=== PATIENT | female | born 1995 | race Caucasian/White ===

== ENCOUNTER 2021-04-05 16:54 | Inpatient (IN) | payer SELFPAY ==
[2021-04-05] MEDS ORDERED: Ondansetron PF 4 MG/2 ML Vial ONE (17:52)
[2021-04-05 17:53] LABS: Bilirubin Neg (Negative); Blood, Urine 150 (Negative); Clarity Clear (Clear); Glucose, Urine (Dipstick) Normal (Negative); Ketone, Urine Negative (Negative); Leukocyte Negative (Negative); Nitrite Negative (Negative); Protein, Urine (Dipstick) 100 mg/dl (Neg-Trace); Specific Gravity, Urine 1.005 (1.002-1.036); Urobilinogen Normal mg/dL (Less than 2)
[2021-04-05 17:58] LABS: Mean Corpuscular HGB CONC 33.4 g/dL (32.0-36.0); Mean Corpuscular Hemoglobin 29.1 pg (27.0-33.0); Mean Corpuscular Volume 87.1 fl (81.6-98.3); Mean Platelet Volume 9.7 fl (7.4-10.4); Platelet Count 270 10x3/uL (150-450); RBC Distribution Width 13.2 % (11.5-14.5); Red Blood Cell (RBC) Count 4.12 10x6/uL (3.90-5.03); White Blood Cell (WBC) Count 46.1 10x3/uL (3.5-10.5)
[2021-04-05 18:08] LABS: ALT (SGPT) 16 U/L (8-55); AST (SGOT) 20 U/L (5-34); Albumin 3.1 g/dL (3.5-5.0); Alkaline Phosphatase 203 U/L (40-110); Anion Gap 16 mmol/L (10-20); BUN (Urea Nitrogen) 19 mg/dL (7.0-18.7); Bilirubin, Total 0.3 mg/dL (0.2-1.2); Calc. Creatinine Clearance 0 mL/min (70-130); Calcium 9.1 mg/dL (7.8-10.44); Carbon Dioxide 22 mmol/L (22-29); Chloride 100 mmol/L (98-107); Globulin 3.6 g/dL (2.4-3.5); Glucose 131 mg/dL (70-105); Potassium 4.1 mmol/L (3.5-5.1); Protein, Total 6.7 g/dL (6.0-8.3); Sodium 134 mmol/L (136-145)
[2021-04-05 18:14] LABS: Pregnancy Test - Urine (BHCG) Negative (Negative); Pregu Control Background? CLEAR/WHITE (CLR/WHITE); Pregu Control Bar Appear? YES (CONTROL BAR); Specific Gravity 1.005 (1.002-1.036)
[2021-04-05 18:17] LABS: RBC/HPF 0-3 HPF (0-3)
[2021-04-05 18:18] LABS: WBC/HPF 0-3 HPF (0-3)
[2021-04-05 18:20] LABS: Bacteria/HPF Rare-Few HPF (None Seen)
[2021-04-05 18:23] LABS: Band 2 % (5-11); Lymphocytes 3 % (21-51); Monocytes 4 % (0-10)
[2021-04-05 18:26] LABS: MDiff Complete? YES
[2021-04-05 18:27] LABS: Neutrophil 91 % (42-75)
[2021-04-05 18:28] LABS: Platelet Morphology Comment Appears Adequate; Reflex for Review?? YES; Toxic Granulation SLIGHT
[2021-04-05 19:48] LABS: SARS-CoV-2 NAA Rapid Test Not Detected (NotDetected)
[2021-04-05] MEDS ORDERED: Morphine 4 MG/ML VIAL ONE (20:04)
[2021-04-05] MEDS ORDERED: Piperacillin/Tazobactam 4.5 GM VIAL ONE (20:04)
[2021-04-05] MEDS ORDERED: cefTRIAXone\\ROCEPHIN 1 GM VIAL ONE (20:32)
[2021-04-05 21:09] LABS: Lactic Acid 1.1 mmol/L (0.5-2.2)
[2021-04-05] MEDS ORDERED: Vancomycin HCl 1 GM in Sodium Chloride 0.9% 250 ML 250 ML IVPB SCH (23:00)
[2021-04-05] MEDS ORDERED: Sodium Chloride 0.9% (PF) 10 ML VIAL FS PRN (23:15)
[2021-04-05 23:27] VITALS: BMI 24.0
[2021-04-06] MEDS: Cefepime 2 GM in Sodium Chloride 0.9% 100 ML IVPB SCH ×3 (00:12→23:56)
[2021-04-06] MEDS ORDERED: Acetaminophen 500 MG TAB ONE (01:54)
[2021-04-06] MEDS ORDERED: Morphine 4 MG/ML VIAL ONE (01:54)
[2021-04-06] MEDS ORDERED: Morphine 4 MG/ML VIAL SLOW IVP SCH (02:15)
[2021-04-06] MEDS ORDERED: Acetaminophen 500 MG TAB PO SCH (02:15)
[2021-04-06] MEDS ORDERED: Lactated Ringer's 500 ML IV SCH (02:15)
[2021-04-06 03:53] LABS: Anion Gap 12 mmol/L (10-20); BUN (Urea Nitrogen) 15 mg/dL (7.0-18.7); Calc. Creatinine Clearance 96 mL/min (70-130); Calcium 7.8 mg/dL (7.8-10.44); Carbon Dioxide 17 mmol/L (22-29); Chloride 109 mmol/L (98-107); Glucose 130 mg/dL (70-105); Potassium 3.8 mmol/L (3.5-5.1); Sodium 134 mmol/L (136-145)
[2021-04-06 04:07] LABS: Hemoglobin 10.3 g/dL (12.0-15.5); Mean Corpuscular HGB CONC 33.6 g/dL (32.0-36.0); Mean Corpuscular Hemoglobin 28.8 pg (27.0-33.0); Mean Corpuscular Volume 85.8 fl (81.6-98.3); Mean Platelet Volume 9.7 fl (7.4-10.4); Platelet Count 223 10x3/uL (150-450); RBC Distribution Width 13.2 % (11.5-14.5); Red Blood Cell (RBC) Count 3.58 10x6/uL (3.90-5.03); White Blood Cell (WBC) Count 30.6 10x3/uL (3.5-10.5)
[2021-04-06 04:36] LABS: Band 22 % (5-11); Lymphocytes 3 % (21-51); Monocytes 2 % (0-10); Reactive Lymphocytes 2 % (0-10)
[2021-04-06 04:37] LABS: Neutrophil 71 % (42-75)
[2021-04-06 04:40] LABS: Dohle Bodies SLIGHT; Platelet Morphology Comment Appears Adequate; Toxic Granulation SLIGHT; Vacuoles SLIGHT
[2021-04-06] MEDS: Lactated Ringer's 1,000 ML IV SCH ×4 (06:42→16:30)
[2021-04-06] MEDS ORDERED: Potassium Chloride 20 MEQ TAB PO SCH (08:00)
[2021-04-06] MEDS: Enoxaparin Sodium 40 MG/0.4 ML SYRINGE SC SCH ×2 (08:45→08:52)
[2021-04-06] MEDS: Pantoprazole 40 MG VIAL IVP SCH (08:46)
[2021-04-06] MEDS: Vancomycin HCl 750 MG in Sodium Chloride 0.9% 250 ML 250 ML IVPB SCH ×2 (11:55→22:36)
[2021-04-06] MEDS: Nicotine 14 MG PATCH TD SCH (11:57)
[2021-04-06] MEDS: Benzonatate 100 MG CAP PO PRN (15:47)
[2021-04-06] MEDS: Guaifenesin DM 100-10/5 ML UDCUP PO PRN (16:30)
[2021-04-06] MEDS ORDERED: SUMAtriptan Succinate 25 MG TAB PO SCH (16:45)
[2021-04-06] MEDS ORDERED: Simethicone Chewable 80 MG TAB PO PRN (17:18)
[2021-04-06] MEDS ORDERED: Morphine 2 MG/ML VIAL SLOW IVP PRN (20:04)
[2021-04-06] MEDS ORDERED: Promethazine HCl 12.5 MG in Sodium Chloride 0.9% 50 ML IVPB PRN (20:05)
[2021-04-06] MEDS ORDERED: Acetaminophen 650 MG/20.3 ML UDCUP PO PRN (20:14)
[2021-04-06] MEDS ORDERED: Aripiprazole 10 MG TAB PO SCH (20:15)
[2021-04-06] MEDS ORDERED: Morphine 4 MG/ML VIAL SLOW IVP PRN (20:30)
[2021-04-07] MEDS: Guaifenesin DM 100-10/5 ML UDCUP PO PRN (02:52)
[2021-04-07] MEDS: Benzonatate 100 MG CAP PO PRN ×3 (02:53→20:26)
[2021-04-07] MEDS: Lactated Ringer's 1,000 ML IV SCH ×2 (02:56→14:38)
[2021-04-07 04:40] LABS: Anion Gap 10 mmol/L (10-20); BUN (Urea Nitrogen) 10 mg/dL (7.0-18.7); Calc. Creatinine Clearance 108 mL/min (70-130); Calcium 8.7 mg/dL (7.8-10.44); Carbon Dioxide 21 mmol/L (22-29); Chloride 111 mmol/L (98-107); Glucose 96 mg/dL (70-105); Potassium 4.4 mmol/L (3.5-5.1); Sodium 138 mmol/L (136-145)
[2021-04-07 04:48] LABS: Hemoglobin 10.9 g/dL (12.0-15.5); Mean Corpuscular HGB CONC 33.7 g/dL (32.0-36.0); Mean Corpuscular Hemoglobin 29.3 pg (27.0-33.0); Mean Corpuscular Volume 86.8 fl (81.6-98.3); Mean Platelet Volume 9.4 fl (7.4-10.4); Platelet Count 224 10x3/uL (150-450); RBC Distribution Width 13.2 % (11.5-14.5); Red Blood Cell (RBC) Count 3.72 10x6/uL (3.90-5.03); White Blood Cell (WBC) Count 28.9 10x3/uL (3.5-10.5)
[2021-04-07 05:02] LABS: Band 10 % (5-11); Eosinophils 2 % (0-10); Lymphocytes 8 % (21-51); Metamyelocyte 1 % (0-0); Monocytes 8 % (0-10); Myelocyte 1 % (0-0); Neutrophil 69 % (42-75)
[2021-04-07 05:04] LABS: MDiff Complete? YES; Manual Diff?? YES
[2021-04-07 05:05] LABS: Dohle Bodies SLIGHT; Platelet Morphology Comment Appears Adequate; Toxic Granulation SLIGHT
[2021-04-07] MEDS: Aripiprazole 10 MG TAB PO SCH (09:49)
[2021-04-07] MEDS: Pantoprazole 40 MG VIAL IVP SCH (09:51)
[2021-04-07] MEDS: Enoxaparin Sodium 40 MG/0.4 ML SYRINGE SC SCH (09:51)
[2021-04-07 10:07] LABS: Vancomycin, Trough 5.8 ug/mL
[2021-04-07] MEDS: Fluticasone Propionate Nasal Spray 16 gm Bottle NASAL SCH (10:29)
[2021-04-07] MEDS: Vancomycin HCl 750 MG in Sodium Chloride 0.9% 250 ML 250 ML IVPB SCH ×2 (10:30→17:11)
[2021-04-07] MEDS: Pseudoephedrine HCl 30 MG TAB PO PRN ×2 (10:31→20:26)
[2021-04-07] MEDS: Cefepime 2 GM in Sodium Chloride 0.9% 100 ML IVPB SCH (14:37)
[2021-04-07] MEDS: Nicotine 14 MG PATCH TD SCH (14:38)
[2021-04-07] MEDS: ALPRAZolam 0.25 MG TAB PO PRN (20:26)
[2021-04-08] MEDS: Cefepime 2 GM in Sodium Chloride 0.9% 100 ML IVPB SCH ×2 (00:17→14:03)
[2021-04-08] MEDS: Vancomycin HCl 750 MG in Sodium Chloride 0.9% 250 ML 250 ML IVPB SCH (02:02)
[2021-04-08 04:48] LABS: Hemoglobin 10.9 g/dL (12.0-15.5); Mean Corpuscular HGB CONC 33.4 g/dL (32.0-36.0); Mean Corpuscular Hemoglobin 27.7 pg (27.0-33.0); Mean Platelet Volume 9.5 fl (7.4-10.4); Platelet Count 256 10x3/uL (150-450); RBC Distribution Width 13.2 % (11.5-14.5); Red Blood Cell (RBC) Count 3.93 10x6/uL (3.90-5.03); White Blood Cell (WBC) Count 19.6 10x3/uL (3.5-10.5)
[2021-04-08 04:57] LABS: Anion Gap 12 mmol/L (10-20); BUN (Urea Nitrogen) 9 mg/dL (7.0-18.7); Calc. Creatinine Clearance 122 mL/min (70-130); Calcium 8.7 mg/dL (7.8-10.44); Carbon Dioxide 20 mmol/L (22-29); Chloride 110 mmol/L (98-107); Glucose 92 mg/dL (70-105); Sodium 138 mmol/L (136-145)
[2021-04-08 05:42] LABS: Band 1 % (5-11); Eosinophils 1 % (0-10); Lymphocytes 14 % (21-51); Metamyelocyte 2 % (0-0); Monocytes 9 % (0-10); Myelocyte 2 % (0-0); Neutrophil 70 % (42-75); Reactive Lymphocytes 1 % (0-10)
[2021-04-08 05:45] LABS: Platelet Morphology Comment Appears Adequate
[2021-04-08 05:46] LABS: MDiff Complete? YES; Manual Diff?? YES
[2021-04-08 08:56] LABS: Vancomycin, Trough 15.2 ug/mL
[2021-04-08] MEDS: Aripiprazole 10 MG TAB PO SCH ×2 (09:51→10:55)
[2021-04-08] MEDS: Pantoprazole 40 MG VIAL IVP SCH (09:51)
[2021-04-08] MEDS: Fluticasone Propionate Nasal Spray 16 gm Bottle NASAL SCH (09:52)
[2021-04-08] MEDS: Enoxaparin Sodium 40 MG/0.4 ML SYRINGE SC SCH (09:53)
[2021-04-08] MEDS: Nicotine 14 MG PATCH TD SCH (13:52)
[2021-04-08] MEDS: ALPRAZolam 0.25 MG TAB PO PRN (14:01)
[2021-04-09] MEDS: Cefepime 2 GM in Sodium Chloride 0.9% 100 ML IVPB SCH ×2 (00:22→15:53)
[2021-04-09 05:15] LABS: Hemoglobin 11.5 g/dL (12.0-15.5); Mean Corpuscular HGB CONC 33.3 g/dL (32.0-36.0); Mean Corpuscular Hemoglobin 28.1 pg (27.0-33.0); Mean Corpuscular Volume 84.4 fl (81.6-98.3); Mean Platelet Volume 9.2 fl (7.4-10.4); Platelet Count 272 10x3/uL (150-450); RBC Distribution Width 13.2 % (11.5-14.5); Red Blood Cell (RBC) Count 4.09 10x6/uL (3.90-5.03); White Blood Cell (WBC) Count 17.3 10x3/uL (3.5-10.5)
[2021-04-09 05:34] LABS: Anion Gap 13 mmol/L (10-20); BUN (Urea Nitrogen) 11 mg/dL (7.0-18.7); Calc. Creatinine Clearance 113 mL/min (70-130); Calcium 8.9 mg/dL (7.8-10.44); Carbon Dioxide 24 mmol/L (22-29); Chloride 106 mmol/L (98-107); Glucose 145 mg/dL (70-105); Potassium 4.3 mmol/L (3.5-5.1); Sodium 139 mmol/L (136-145)
[2021-04-09 05:51] LABS: Band 2 % (5-11); Eosinophils 2 % (0-10); Lymphocytes 15 % (21-51); Metamyelocyte 1 % (0-0); Monocytes 8 % (0-10); Myelocyte 1 % (0-0); Reactive Lymphocytes 1 % (0-10)
[2021-04-09 05:52] LABS: Manual Diff?? YES; Neutrophil 69 % (42-75)
[2021-04-09 05:53] LABS: MDiff Complete? YES; Platelet Morphology Comment Appears Adequate
[2021-04-09 05:54] LABS: Dohle Bodies SLIGHT; Toxic Granulation SLIGHT; Vacuoles SLIGHT
[2021-04-09] MEDS: Enoxaparin Sodium 40 MG/0.4 ML SYRINGE SC SCH (11:10)
[2021-04-09] MEDS: Pantoprazole 40 MG VIAL IVP SCH (11:10)
[2021-04-09] MEDS: Aripiprazole 10 MG TAB PO SCH (11:11)
[2021-04-09] MEDS: Fluticasone Propionate Nasal Spray 16 gm Bottle NASAL SCH (11:12)
[2021-04-09] MEDS: Nicotine 14 MG PATCH TD SCH (15:52)
[2021-04-09 20:54] LABS: Chlam.trachomatis by PCR,Urine Not Detected (NotDetected)
[2021-04-10] MEDS: Cefepime 2 GM in Sodium Chloride 0.9% 100 ML IVPB SCH (00:30)
[2021-04-10 08:23] VITALS: BP 110/72; TEMP 97.7
[2021-04-10] MEDS: Aripiprazole 10 MG TAB PO SCH (09:16)
[2021-04-10] MEDS: Enoxaparin Sodium 40 MG/0.4 ML SYRINGE SC SCH (09:17)
[2021-04-10] MEDS: Pantoprazole 40 MG VIAL IVP SCH (09:19)
[2021-04-10] MEDS: Fluticasone Propionate Nasal Spray 16 gm Bottle NASAL SCH (09:22)
== END 2021-04-10 10:22 | disposition home or self-care (01) | DRG 872 ==
LOC: CSHERS 16:54 → CSHICU 22:56 → CSHTELE 04-07 08:06
PROVIDERS: ADMIT Family Medicine; ATTEND Hospitalist
DX: A41.9 Sepsis, unspecified organism (principal); N10 Acute pyelonephritis; R65.20 Severe sepsis without septic shock; Z20.822 Contact with and (suspected) exposure to COVID-19; F31.9 Bipolar disorder, unspecified
CPT/HCPCS: 0240U; 36415; 71046; 74177; 80048; 80053; 80202; 81003; 81015; 81025; 83605; 83735; 85025; 85060; 87040; 87086; 87491; 87591; 93005; 93010; 94640; 94760; 94799; 96365; 96368; 96375; C9113; J0692; J0696; J1650; J1956; J2270; J2405; J2543; J3370; J3490; J7050; J7120; J7620

== ENCOUNTER 2021-09-18 06:01 | Emergency (ER) | payer SELFPAY ==
[2021-09-18] MEDS ORDERED: Lorazepam 2 MG/ML VIAL ONE (06:21)
[2021-09-18 06:30] LABS: #Basophils 0.1 10x3/uL (0.0-0.2); #Monocytes 1.2 10x3/uL (0.0-1.1); #Neutrophils 7.2 10x3/uL (1.5-8.4); %Basophils 0.4 % (0.0-2.0); %Eosinophils 0.3 % (0.0-6.0); %Lymphocytes 28.5 % (18.0-47.0); %Neutrophils 60.5 % (40.0-75.0); Hemoglobin 13.3 g/dL (12.0-15.5); Mean Corpuscular HGB CONC 33.7 g/dL (32.0-36.0); Mean Corpuscular Hemoglobin 28.9 pg (27.0-33.0); Mean Corpuscular Volume 85.7 fl (81.6-98.3); Mean Platelet Volume 9.1 fl (7.4-10.4); Platelet Count 359 10x3/uL (150-450); RBC Distribution Width 13.2 % (11.5-14.5); Red Blood Cell (RBC) Count 4.61 10x6/uL (3.90-5.03)
[2021-09-18 06:34] LABS: BHCG - Serum Negative (NEGATIVE); Pregs Control Background? CLEAR/WHITE (CLR/WHITE); Pregs Control Bar Appear? YES (CONTROL BAR)
[2021-09-18 06:38] LABS: PTT 25.6 sec (22.0-33.0); Prothrombin Time 10.7 sec (9.5-12.1)
[2021-09-18 06:44] LABS: ALT (SGPT) 14 U/L (8-55); AST (SGOT) 17 U/L (5-34); Albumin 4.2 g/dL (3.5-5.0); Alkaline Phosphatase 79 U/L (40-110); Anion Gap 15 mmol/L (10-20); BUN (Urea Nitrogen) 19 mg/dL (7.0-18.7); Bilirubin, Total 0.4 mg/dL (0.2-1.2); Calc. Creatinine Clearance 0 mL/min (70-130); Calcium 9.1 mg/dL (7.8-10.44); Carbon Dioxide 20 mmol/L (22-29); Chloride 110 mmol/L (98-107); Globulin 2.8 g/dL (2.4-3.5); Glucose 98 mg/dL (70-105); Potassium 3.7 mmol/L (3.5-5.1); Sodium 141 mmol/L (136-145)
[2021-09-18 06:52] LABS: Acetaminophen Less than 6.0 mcg/mL (10.0-30.0); Alcohol Less than 10 mg/dL (Less than 10); Salicylate Less than 8.0 mg/dL (15.0-30.0)
== END 2021-09-18 08:45 | disposition home or self-care (01) ==
LOC: CSHERS 06:01
DX: F19.239 Other psychoactive substance dependence with withdrawal, unspecified (principal); R00.0 Tachycardia, unspecified; K72.90 Hepatic failure, unspecified without coma; F17.210 Nicotine dependence, cigarettes, uncomplicated; Z79.899 Other long term (current) drug therapy
CPT/HCPCS: 71045; 80053; 80307; 84703; 85025; 85610; 85730; 93005; 96374; J2060

== ENCOUNTER 2021-09-19 14:50 | Emergency (ER) | payer SELFPAY ==
[2021-09-19 15:20] LABS: #Basophils 0.1 10x3/uL (0.0-0.2); #Monocytes 0.9 10x3/uL (0.0-1.1); #Neutrophils 10.1 10x3/uL (1.5-8.4); %Basophils 0.4 % (0.0-2.0); %Eosinophils 0.1 % (0.0-6.0); %Lymphocytes 17.3 % (18.0-47.0); %Monocytes 6.6 % (0.0-10.0); %Neutrophils 75.2 % (40.0-75.0); Hemoglobin 13.8 g/dL (12.0-15.5); Mean Corpuscular HGB CONC 33.7 g/dL (32.0-36.0); Mean Corpuscular Hemoglobin 29.1 pg (27.0-33.0); Mean Corpuscular Volume 86.5 fl (81.6-98.3); Mean Platelet Volume 9.3 fl (7.4-10.4); Platelet Count 376 10x3/uL (150-450); RBC Distribution Width 12.7 % (11.5-14.5); Red Blood Cell (RBC) Count 4.74 10x6/uL (3.90-5.03); White Blood Cell (WBC) Count 13.4 10x3/uL (3.5-10.5)
[2021-09-19 15:39] LABS: ALT (SGPT) 13 U/L (8-55); AST (SGOT) 13 U/L (5-34); Albumin 4.5 g/dL (3.5-5.0); Alcohol Less than 10 mg/dL (Less than 10); Alkaline Phosphatase 79 U/L (40-110); Anion Gap 13 mmol/L (10-20); BUN (Urea Nitrogen) 17 mg/dL (7.0-18.7); Bilirubin, Total 0.2 mg/dL (0.2-1.2); Calc. Creatinine Clearance 0 mL/min (70-130); Calcium 9.7 mg/dL (7.8-10.44); Carbon Dioxide 23 mmol/L (22-29); Chloride 110 mmol/L (98-107); Glucose 112 mg/dL (70-105); Potassium 3.8 mmol/L (3.5-5.1); Protein, Total 7.5 g/dL (6.0-8.3); Sodium 142 mmol/L (136-145)
[2021-09-19 15:40] LABS: Acetaminophen Less than 6.0 mcg/mL (10.0-30.0); Alcohol Less than 10 mg/dL (Less than 10); Salicylate Less than 8.0 mg/dL (15.0-30.0)
[2021-09-19 15:44] LABS: Bilirubin Neg (Negative); Blood, Urine 25 (Negative); Clarity Cloudy (Clear); Glucose, Urine (Dipstick) Normal (Negative); Ketone, Urine Negative (Negative); Leukocyte Negative (Negative); Nitrite Negative (Negative); Protein, Urine (Dipstick) 15 mg/dl (Neg-Trace); Specific Gravity, Urine 1.025 (1.002-1.036); Urobilinogen Normal mg/dL (Less than 2)
[2021-09-19 15:50] LABS: Pregnancy Test - Urine (BHCG) Negative (Negative); Pregu Control Background? CLEAR/WHITE (CLR/WHITE); Pregu Control Bar Appear? YES (CONTROL BAR); Specific Gravity 1.025 (1.002-1.036)
[2021-09-19 15:52] LABS: Amphetamine Detected (NotDetected); Barbiturates Screen Not Detected (NotDetected); Benzodiazepine Screen Detected (NotDetected); Cocaine Metabolite Screen Not Detected (NotDetected); Methadone Not Detected (NotDetected); Methamphetamine Detected (NotDetected); Opiate Screen Not Detected (NotDetected); Oxycodone Screen Not Detected (NotDetected); Phencyclidine (PCP) Not Detected (NotDetected); THC/Cannabinoid Screen Not Detected (NotDetected); Tricyclic Screen Not Detected (NotDetected)
[2021-09-19 16:04] LABS: Bacteria/HPF 1+ HPF (None Seen); Mucous/LPF 1+ LPF (<2+)
[2021-09-19] MEDS ORDERED: Lorazepam 2 MG/ML VIAL ONE (16:42)
[2021-09-19] MEDS ORDERED: Nicotine 14 MG PATCH ONE (19:22)
[2021-09-19] MEDS ORDERED: hydrOXYzine 25 MG TAB ONE (19:42)
[2021-09-20] MEDS ORDERED: Aripiprazole 10 MG TAB PO SCH (11:15)
[2021-09-20] MEDS ORDERED: hydrOXYzine 25 MG TAB ONE (16:52)
[2021-09-20] MEDS ORDERED: Nicotine 14 MG PATCH ONE (19:29)
== END 2021-09-21 01:30 | disposition home or self-care (01) ==
LOC: CSHERS 14:50
DX: R45.851 Suicidal ideations (principal); R00.0 Tachycardia, unspecified; F17.210 Nicotine dependence, cigarettes, uncomplicated; K72.90 Hepatic failure, unspecified without coma; Z79.899 Other long term (current) drug therapy
CPT/HCPCS: 80053; 80306; 80307; 81003; 81015; 81025; 84443; 85025; 93005; 96374; J2060

== ENCOUNTER 2021-09-29 17:44 | Emergency (ER) | payer SELFPAY | END 2021-09-29 18:42 | disposition home or self-care (01) | LOC: CSHERS 17:44 | DX: L72.9 Follicular cyst of the skin and subcutaneous tissue, unspecified (principal); F17.210 Nicotine dependence, cigarettes, uncomplicated | CPT/HCPCS: 99283 ==

== ENCOUNTER 2021-10-04 21:19 | Emergency (ER) | payer SELFPAY ==
[2021-10-04] MEDS ORDERED: Lorazepam 2 MG/ML VIAL ONE (21:57)
[2021-10-04 21:58] LABS: #Basophils 0.1 10x3/uL (0.0-0.2); #Monocytes 1.2 10x3/uL (0.0-1.1); #Neutrophils 10.1 10x3/uL (1.5-8.4); %Basophils 0.3 % (0.0-2.0); %Eosinophils 0.1 % (0.0-6.0); %Lymphocytes 25.7 % (18.0-47.0); %Monocytes 7.8 % (0.0-10.0); %Neutrophils 65.7 % (40.0-75.0); Hemoglobin 12.8 g/dL (12.0-15.5); Mean Corpuscular HGB CONC 33.2 g/dL (32.0-36.0); Mean Corpuscular Hemoglobin 29.1 pg (27.0-33.0); Mean Corpuscular Volume 87.7 fl (81.6-98.3); Mean Platelet Volume 9.5 fl (7.4-10.4); Platelet Count 375 10x3/uL (150-450); RBC Distribution Width 12.4 % (11.5-14.5); White Blood Cell (WBC) Count 15.3 10x3/uL (3.5-10.5)
[2021-10-04 22:07] LABS: ALT (SGPT) 18 U/L (8-55); AST (SGOT) 17 U/L (5-34); Acetaminophen Less than 6.0 mcg/mL (10.0-30.0); Albumin 4.3 g/dL (3.5-5.0); Alcohol Less than 10 mg/dL (Less than 10); Alkaline Phosphatase 75 U/L (40-110); Anion Gap 13 mmol/L (10-20); BUN (Urea Nitrogen) 17 mg/dL (7.0-18.7); Bilirubin, Total 0.5 mg/dL (0.2-1.2); CK (CPK) 213 U/L (29-168); Calc. Creatinine Clearance 0 mL/min (70-130); Calcium 9.1 mg/dL (7.8-10.44); Carbon Dioxide 23 mmol/L (22-29); Chloride 110 mmol/L (98-107); Globulin 2.3 g/dL (2.4-3.5); Glucose 90 mg/dL (70-105); Potassium 3.6 mmol/L (3.5-5.1); Protein, Total 6.6 g/dL (6.0-8.3); Salicylate Less than 8.0 mg/dL (15.0-30.0); Sodium 142 mmol/L (136-145)
[2021-10-04 22:29] LABS: Bilirubin Neg (Negative); Blood, Urine 25 (Negative); Clarity Clear (Clear); Glucose, Urine (Dipstick) Normal (Negative); Ketone, Urine 5 mg/dL (Negative); Leukocyte 25 (Negative); Nitrite Negative (Negative); Protein, Urine (Dipstick) 15 mg/dl (Neg-Trace); Specific Gravity, Urine 1.025 (1.002-1.036); Urobilinogen Normal mg/dL (Less than 2)
[2021-10-04 22:34] LABS: Pregnancy Test - Urine (BHCG) Negative (Negative); Pregu Control Background? CLEAR/WHITE (CLR/WHITE); Pregu Control Bar Appear? YES (CONTROL BAR); Specific Gravity 1.025 (1.002-1.036)
[2021-10-04 22:38] LABS: Amphetamine Detected (NotDetected); Barbiturates Screen Not Detected (NotDetected); Benzodiazepine Screen Detected (NotDetected); Cocaine Metabolite Screen Not Detected (NotDetected); Methadone Not Detected (NotDetected); Methamphetamine Detected (NotDetected); Opiate Screen Not Detected (NotDetected); Oxycodone Screen Not Detected (NotDetected); Phencyclidine (PCP) Not Detected (NotDetected); THC/Cannabinoid Screen Not Detected (NotDetected); Tricyclic Screen Not Detected (NotDetected)
[2021-10-04 22:44] LABS: WBC/HPF 0-3 HPF (0-3)
[2021-10-04 22:45] LABS: Bacteria/HPF Rare-Few HPF (None Seen)
== END 2021-10-05 03:00 | disposition home or self-care (01) ==
LOC: CSHERS 21:19
DX: F15.23 Other stimulant dependence with withdrawal (principal); D72.829 Elevated white blood cell count, unspecified; F17.210 Nicotine dependence, cigarettes, uncomplicated
CPT/HCPCS: 80053; 80306; 80307; 81003; 81015; 81025; 82550; 85025; 93005; 96374; J2060